=== PATIENT | male | born 1935 | race Caucasian/White ===

== ENCOUNTER 2018-02-12 02:10 | Emergency (ER) | payer MEDICARE, BC ==
[2018-02-12 02:15] VITALS: RESP 20; TEMP 97.6
[2018-02-12 02:53] LABS: APPEARANCE,URINE Slightly Cloudy; BILIRUBIN,URINE NEGATIVE (NEGATIVE); COLOR,URINE Yellow; GLUCOSE, URINE (UA) NEGATIVE (NEGATIVE); KETONES,URINE NEGATIVE (NEGATIVE); LEUKOCYTE ESTERASE ,URINE NEGATIVE (NEGATIVE); NITRATE,URINE NEGATIVE (NEGATIVE); OCCULT BLOOD,URINE 2+ (NEG-TRACE); PH,URINE 5.5; UROBILINOGEN,URINE 0.2 (0.2-1.0 EU)
[2018-02-12 03:06] LABS: RBC,URINE 0-3 (0-3AV/HPF); WBC,URINE NEG (0-5AV/HPF)
[2018-02-12 03:07] LABS: BACTERIA 1+ (< 1+); CRYSTALS NEGATIVE (0-3 AVE/HPF); EPITHELIAL CELLS 0-1 (SQUAMOUS)
[2018-02-12 03:56] VITALS: BP 192/74; PULSE 76; O2SAT 96
== END 2018-02-12 03:45 | disposition home or self-care (01) | DRG 726 ==
LOC: ED 02:10
DX: N40.1 Benign prostatic hyperplasia with lower urinary tract symptoms (principal); R33.8 Other retention of urine
CPT/HCPCS: 51798; 81001; 99282; 99283